=== PATIENT | male | born 1990 | race Native Hawaiian/Other Pacific Islander ===

== ENCOUNTER 2020-11-13 10:07 | Emergency (ER) | payer OTHER ==
[~2020-11-13] VITALS: Ht 167.6 cm; Wt 79.4 kg
[2020-11-13 10:16] VITALS: TEMP 98.2
[2020-11-13 10:43] LABS: PLATELET COUNT 237 K/uL (142-355)
[2020-11-13 10:52] LABS: POTASSIUM 3.8 mmol/L (3.6-5.2); SODIUM 141 mmol/L (136-145)
[2020-11-13 11:01] LABS: PARTIAL THROMBOPLASTIN TIME 25.3 SECONDS (24.5-33.6)
[2020-11-13 12:09] VITALS: BP 118/80
== END 2020-11-13 12:10 | disposition home or self-care (01) ==
LOC: ED 10:07
PROVIDERS: Hospitalist
DX: G62.89 Other specified polyneuropathies (principal); G58.8 Other specified mononeuropathies
CPT/HCPCS: 80053; 82550; 83880; 84484; 85027; 85610; 85730; 93005; 96372; 99283; J1885; J2930